=== PATIENT | female | born 1985 | race Caucasian/White ===

== ENCOUNTER 2022-02-04 23:57 | Emergency (ER) | payer OTHER, BC, MEDICAID, SELFPAY ==
[2022-02-05 00:05] VITALS: BP 134/95; PULSE 68; RESP 18; TEMP 36.8; O2SAT 99; BMI 23.4
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
--- NOTE | 2022-02-05 01:14 | ED.NURSE ---
Pt to and back from radiology
[2022-02-05 02:12] VITALS: BP 132/85; PULSE 60; RESP 16; TEMP 35.9; O2SAT 99
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
== END 2022-02-05 02:32 | disposition home or self-care (01) ==
PROVIDERS: Emergency Provider Internal Medicine
DX: S09.90XA Unspecified injury of head, initial encounter (principal); W20.8XXA Other cause of strike by thrown, projected or falling object, initial encounter
CPT/HCPCS: 70450; 72125; 99282; 99283